=== PATIENT | female | born 1995 | race Two or more races ===

== ENCOUNTER 2024-04-30 00:07 | Inpatient (IN) | payer OTHER, MEDICAID, SELFPAY ==
[2024-04-30] VITALS (11 sets, daily range): BP systolic 102–144; BP diastolic 52–94; PULSE 95–133; RESP 14–26; TEMP 36.6–37.4; O2SAT 97–100; BMI 30.7; BMI 30.6
--- NOTE | 2024-04-30 00:30 | EDNOTE_ITS ---
ED Abdominal Pain RME/HPI General Chief Complaint: Abdominal Pain Stated complaint: ABD PAIN,N/V Time seen by provider: 04/30/24 00:24 Arrival date/time: 04/30/24 00:07 RME / HPI RME / HPI narrative: This section includes all my notes and documentations, including HPI, PE, and ED course. Quintin Mtz MD HPI: 28yo female with a history of DM BIB her dad presents to the ED for complaints of diffuse abdominal pain and N/V x several hours. Patient's dad states the patient started having diffuse abdominal pain tonight that has been progressively getting worse. The patient started having N/V and was unable to tolerate the pain, so she was brought in for evaluation. Dad also reports disorientation and confusion. Denies any fever, chills or any other associated symptoms. No other complaints reported. ROS: All negative except as documented in HPI. Physical Exam: General: Patient appears alert but hyperventilating. And not focused. Gyrating with no obvious purpose. Constant moaning, possibly from pain. Eyes: Conjunctivae and lids clear. EOMI. PERRL. ENT: No nasal congestion. Neck: Supple. Heart: Sinus tachycardia noted. Lungs: No respiratory distress. Good air movement. No rhonchi, wheezing, rales. Abdomen: Soft and nontender. Legs: No clubbing, cyanosis, edema. Skin: Warm and dry. Neurological: Cranial nerves II to XII grossly normal. No peripheral motor deficits. Initially, she was given IV fluid and Zofran and Toradol and morphine with no significant improvement. I reviewed all diagnostic test results. My interpretation of the EKG is sinus tachycardia with no acute ST?T changes. My interpretation of the chest x-ray is no acute findings, official radiology report is pending. Blood tests and urine tests remarkable for WBC 16.4, K 3.3, anion gap 18, GLU 303, LA 5.1, Phos 1.4, beta hydroxybutyrate 1.3. ABG showed pH 7.53, pCO2 19, pHCO3 16. At this point, diagnoses include DKA. Patient was also given regular insulin bolus and drip. With Ativan 1.5 mg IV, mental status improved. I discussed the case with our ICU team. About the presentation and exam and diagnostics and treatments here. And need of further care in the hospital. Will accept the patient. Quintin Mtz MD Related Data Previous Rx's ?Medication ?Instructions ?Recorded insulin glargine 100 unit/mL (3 15 unit (0.15 mL) subc ut QPM 30 06/06/22 mL) subcutaneous pen (Lantus days #4.5 mL Solostar U-100 Insulin) metoclopramide HCl 10 mg tablet 10 mg PO Q6H PRN nause a and 07/24/22 vomiting #20 tabs diphenhydramine HCl 25 mg capsule 25 mg PO Q8H PRN all ergic symptoms 08/09/23 (Benadryl) #30 caps Allergies Allergy/AdvReac Type Severity Reaction Status Date / Time No Known Allergies Allergy Verified 03/07/22 01:35 Review of Systems Review of Systems Systems Reviewed: All systems reviewed, normal except as documented Past Medical History Past Medical History NEUROLOGIC: Negative Neurological Disorders CARDIAC: Positive Hypertension (last ); Negative Cardiac Disorders or Congestive Heart Failure RESPIRATORY: Negative Chronic Obstructive Pulmonary Disease (COPD) GASTROINTESTINAL: Negative Gastrointestinal Disorders GENITOURINARY: Negative Genitourinary Disorders or Renal Disease REPRODUCTIVE: Positive Previous Pregnancies MUSCULOSKELETAL: Negative Musculoskeletal Disorders ENDOCRINE: Positive Endocrine Disorders and Diabetes Mellitus Type 1; Negative Diabetes Mellitus Type 2 HEMATOLOGIC: Positive Anemia OTHER HISTORY: Negative Autoimmune Disease Family History FAMILY HISTORY: Negative Family Psychiatric Problems, Family Respiratory Disorders, Family Cardiac Disorders, Family Gastrointestinal Problems, Family Cancer or Family Surgery Social History SMOKING STATUS: Current every day smoker ED Exam Narrative Physical exam: As noted in HPI. Course Quality Measures none Orders Category Date Time Status Bedside COVID-19 Antigen Test NOW Care 04/30/24 00:27 Active Bedside Influenza A&B Antigen Test NOW Care 04/30/24 00:27 Completed COVID-19 Screening Questionnaire NOW Care 04/30/24 02:26 Active Decision to Admit X1 Care 04/30/24 02:26 Active EKG (ED ONLY) *Do not use* NOW Care 04/30/24 01:08 Active Glucose [Bedside Blood Glucose] NOW Care 04/30/24 00:30 Active Saline [Insert IV] NOW Care 04/30/24 00:27 Active Straight [In and Out Catheter] X1 Care 04/30/24 00:27 Active EKG (ED Only) Stat Exams 04/30/24 01:08 Ordered ABG [Arterial Blood Gas] Stat Lab 04/30/24 01:34 Completed Acetaminophen Stat Lab 04/30/24 01:22 Completed Alcohol, Blood Medical Stat Lab 04/30/24 01:22 Completed Ammonia Stat Lab 04/30/24 01:22 Completed Amylase Stat Lab 04/30/24 01:22 Completed BNP [B-Type Natriuretic Peptide] Stat Lab 04/30/24 01:22 Completed Beta Hydroxybutyrate Stat Lab 04/30/24 01:22 Completed Blood Culture (Lab) Stat Lab 04/30/24 01:22 Received CBC Stat Lab 04/30/24 01:22 Completed CMP [Comprehensive Metabolic Panel] Stat Lab 04/30/24 01:22 Completed CRP [C-Reactive Protein] Stat Lab 04/30/24 01:22 Completed Drug Screen,Urine Stat Lab 04/30/24 01:09 Ordered ESR [Sed Rate (ESR)] Stat Lab 04/30/24 01:22 Completed HCG Qualitative,Urine Stat Lab 04/30/24 01:09 Ordered HCG,Qualitative Serum Stat Lab 04/30/24 01:22 Completed Hemoglobin A1C [Glycohemoglobin w (eAG)] Stat Lab 04/30/24 01:22 Completed Lactate (Lactic Acid) Stat Lab 04/30/24 01:22 Results Lipase Stat Lab 04/30/24 01:22 Completed Magnesium Stat Lab 04/30/24 01:22 Completed Phosphorous Stat Lab 04/30/24 01:22 Completed Procalcitonin Stat Lab 04/30/24 01:22 Completed Salicylate Stat Lab 04/30/24 01:22 Completed Thyroid Stimulating Hormone Stat Lab 04/30/24 01:22 Completed Troponin I Stat Lab 04/30/24 01:22 Completed UA, C/S IF [Urinalysis, C/S if Indicated] Stat Lab 04/30/24 01:09 Ordered Insulin Reg 100 Units/100 ml [Myxredlin] Med 04/30/24 02:24 Active 100 unit in 100 ml IV 0.1 unit/kg/hr Insulin Regular Med 04/30/24 02:56 Discontinued 20 unit IV X1 ONE Insulin Regular Med 04/30/24 01:07 Discontinued 5 unit IV X1 ONE Insulin Regular Med 04/30/24 03:07 Once 5 unit IV X1 ONE Ketorolac Inj [Toradol Inj] Med 04/30/24 00:27 Discontinued 30 mg IVP X1 ONE LORazepam [Ativan Inj] Med 04/30/24 01:59 Discontinued 1.5 mg IVP X1 ONE Morphine Inj Med 04/30/24 00:27 Discontinued 4 mg IVP X1 ONE Ondansetron Inj [Zofran Inj] Med 04/30/24 00:27 Discontinued 4 mg IV X1 ONE Ringers Lactated 1000 ml [Lactated Ringers] 1,000 ml Med 04/30/24 02:56 Discontinued IV 999 mls/hr Sodium Chloride 0.9% 1000 ml [Ns] 1,000 ml Med 04/30/24 00:27 Discontinued IV 999 mls/hr Sodium Chloride 0.9% 1000 ml [Ns] 1,000 ml Med 04/30/24 01:07 Discontinued IV 999 mls/hr Sodium Chloride 0.9% 1000 ml [Ns] 1,000 ml Med 04/30/24 01:07 Discontinued IV 999 mls/hr Sodium Chloride 0.9% 1000 ml [Ns] 1,000 ml Med 04/30/24 02:56 Active IV 999 mls/hr Sodium Chloride 0.9% 1000 ml [Ns] 1,000 ml Med 04/30/24 02:58 Active IV 999 mls/hr Sodium Chloride 0.9% 1000 ml [Ns] 1,000 ml Med 04/30/24 02:59 Active IV 999 mls/hr Vital Signs Vital signs: Vital Signs Temperature 99.3 F 04/30/24 00:41 Pulse Rate 133 H 04/30/24 00:41 Respiratory Rate 19 04/30/24 00:41 Blood Pressure 144/94 H 04/30/24 00:41 Pulse Oximetry (%) 97 04/30/24 00:41 Abdominal Pain MDM MDM Narrative [facility] Narrative:: Scribe Attestation: 04/30/24 Tana Montalvo am scribing for and in the presence of Dr. Mtz. Patient data External records reviewed:: [facility] previous records (Per chart review, patient was seen here on 07/30/23 for a rash.) Clinical information provided by:: patient Social determinants that could affect healthcare access:: substance use (history of marijuana use) Patient has the following chronic illnesses:: DM How is presenting disease/condition affected by chronic disease/condition?: uneffected by Evaluation data The following diagnostics were reviewed and interpreted by me:: lab results, radiology exam(s) and EKG tracing(s) (My interpretation of the EKG is: Sinus tachycardia (116 bpm) with nonspecific ST-T changes. Quintin Mtz MD) Lab and/or radiology exams considered but not ordered:: none Interpretation Summary: DKA Medications / Prescriptions Medications or Prescriptions considered but not ordered:: none Medication administrations:: Medication Administration History Insulin Human Regular (Myxredlin) 100 unit in 100 mls @ 8.618 mls/hr IV .[id number] PRN; Protocol PRN Reason: PER PROTOCOL Stop: 05/30/24 02:23 Sodium Chloride (Ns) 1,000 mls @ 999 mls/hr IV .Q1H1M ONE Stop: 04/30/24 03:56 Sodium Chloride (Ns) 1,000 mls @ 999 mls/hr IV .Q1H1M ONE Stop: 04/30/24 03:58 Sodium Chloride (Ns) 1,000 mls @ 999 mls/hr IV .Q1H1M ONE Stop: 04/30/24 03:59 Insulin Human Regular (Insulin Hum Regular 1 Unit/0.01 Ml (Per Unit)) 5 unit IV X1 ONE Stop: 04/30/24 03:08 Discontinued Medications Sodium Chloride (Ns) 1,000 mls @ 999 mls/hr IV .Q1H1M ONE Stop: 04/30/24 01:27 Last Infusion: 04/30/24 02:06 Dose: Infused Documented By: Admin: 04/30/24 01:05 Dose: 999 mls/hr Documented By: LB Sodium Chloride (Ns) 1,000 mls @ 999 mls/hr IV .Q1H1M ONE Stop: 04/30/24 02:07 Last Admin: 04/30/24 02:14 Dose: 999 mls/hr Documented By: LB Sodium Chloride (Ns) 1,000 mls @ 999 mls/hr IV .Q1H1M ONE Stop: 04/30/24 02:07 Last Admin: 04/30/24 02:45 Dose: 999 mls/hr Documented By: LB Lactated Ringer's (Lactated Ringers) 1,000 mls @ 999 mls/hr IV .Q1H1M ONE Stop: 04/30/24 03:56 Insulin Human Regular (Insulin Hum Regular 1 Unit/0.01 Ml (Per Unit)) 5 unit IV X1 ONE Stop: 04/30/24 01:08 Last Admin: 04/30/24 02:15 Dose: 5 unit Documented By: PATRIA Co-signed By: RICHARD Insulin Human Regular (Insulin Hum Regular 1 Unit/0.01 Ml (Per Unit)) 20 unit IV X1 ONE Stop: 04/30/24 02:57 Ketorolac Tromethamine (Ketorolac Inj 30 Mg/Ml Vial) 30 mg IVP X1 ONE Stop: 04/30/24 00:28 Last Admin: 04/30/24 02:40 Dose: 30 mg Documented By: LB Lorazepam (Lorazepam 2 Mg/Ml Vial) 1.5 mg IVP X1 ONE Stop: 04/30/24 02:00 Last Admin: 04/30/24 02:38 Dose: 1.5 mg Documented By: LB Morphine Sulfate (Morphine Sulf Inj 10 Mg/Ml Vial) 4 mg IVP X1 ONE Stop: 04/30/24 00:28 Last Admin: 04/30/24 01:05 Dose: 4 mg Documented By: PATRIA Ondansetron HCl (Ondansetron Inj 2 Mg/Ml Inj 2 Ml) 4 mg IV X1 ONE; Protocol Stop: 04/30/24 00:28 Last Admin: 04/30/24 01:04 Dose: 4 mg Documented By: PATRIA NS 1L IVF x3, Toradol, Morphine, Zofran, Insulin, Ativan Consultations Consultation(s) initiated? (list below): No Diagnosis Differential diagnosis abdominal pain: other (DKA, dehydration, electrolyte abnormalities, sepsis) Most likely diagnosis given after review of the tests above:: DKA Admission Indicated Admission indicated?: indicated Explain why admission is indicated or not indicated:: DKA Admission Request Was there a request for admission?: Yes Admission Attestation Admission request attestation: Discussed case with ICU service regarding admission. Discussed patients ED course, exam findings, labs, and radiology results. The ICU agrees to accept the patient for admission. Disposition Plan Disposition Plan: Admit Discharge Plan Plan Patient Disposition: Admit Acute Care w/in Hospital Prescriptions/Referrals Prescriptions/Med Rec: No Action diphenhydramine HCl [Benadryl] 25 mg capsule 25 mg PO Q8H PRN (Reason: allergic symptoms) Qty: 30 0RF insulin glargine [Lantus Solostar U-100 Insulin] 100 unit/mL (3 mL) insulin pen 15 unit subcut QPM 30 Days Qty: 4.5 1RF metoclopramide HCl 10 mg tablet 10 mg PO Q6H PRN (Reason: nausea and vomiting) Qty: 20 0RF Problem List Clinical Impression: DKA (diabetic ketoacidosis) Patient/Caregiver Discharge Instructions Print Language: [place] Stand Alone Forms: [employer] Info., Patient Portal Info Letter
--- NOTE | 2024-04-30 00:52 | PC.NURSE ---
Initial contact with pt. Awake, crying c/o abd pain.
[2024-04-30] MEDS: ONDANSETRON INJ 2 MG/ML INJ 2 ML 4 MG IV ×2 (01:04→08:39)
[2024-04-30] MEDS: SODIUM CHLORIDE 0.9% 1000 ML 1,000 ML 999 ML IV ×12 (01:05→08:33)
[2024-04-30] MEDS: MORPHINE SULF INJ 10 MG/ML VIAL 4 MG IVP (01:05)
--- NOTE | 2024-04-30 01:08 | EKG_ITS ---
[facility] Test Date: 2024-04-30 Pat Name: ROBERT BUTLER Department: Room: - Gender: Female [employer]: : 1995 Requested By: Quintin Lopez Order Number: [id number] Reading MD: Quintin Lopez Measurements Intervals [place] Rate: 109 P: 47 [place]: 152 QRS: 58 QRSD: 98 T: 22 QT: 370 QTc: 500 Interpretive Statements SINUS TACHYCARDIA NONSPECIFIC T-WAVE ABNORMALITY ABNORMAL RHYTHM ECG Compared to ECG 09/12/2021 19:50:20 T-wave abnormality now present /store/S0/[id number]/ecg/[id number].pdf
--- NOTE | 2024-04-30 01:22 | PC.NURSE ---
To ct-scan via w/c.
[2024-04-30 01:39] LABS: Basophils % (Auto) 0 % (0-2.5); Eosinophils % (Auto) 0 % (0-10); Hematocrit 36.1 % (36.0-46.0); Hemoglobin 12.3 g/dL (12.0-16.0); Immature Granulocytes % (Auto) 0 % (0-0); Immature Granulocytes Auto 0.07 Thou/mm3 (0.00-0.00); Lymphocytes # (Auto) 1.5 Thou/mm3 (1.0-4.8); Lymphocytes % (Auto) 9 % (10-50); Mean Corpuscular HGB Conc 34.1 g/dl (31.0-37.0); Mean Corpuscular Hemoglobin 27.6 pg (25.0-35.0); Mean Corpuscular Volume 81 fL (80-100); Monocytes # (Auto) 0.8 Thou/mm3 (0.0-0.8); Monocytes % (Auto) 5 % (0-12); Neutrophils % (Auto) 86 % (37-80); Nucleated Red Blood Cell % 0 /100 WBC (0); Platelet Count 290 Thou/mm3 (140-440); RDW Standard Deviation 42.6 fL (36.4-46.3); Red Blood Count 4.46 Miln/mm3 (4.00-5.20); White Blood Count 16.4 Thou/mm3 (3.6-11.0)
[2024-04-30 01:39] LABS: Base Excess -4 (-3-3); HCO3 16 mEq/L (20-26); Inspired Oxygen, FIO2 21 %; O2 Saturation 100 % (91-98); PCO2 19 mmHg (32.0-48.0); PO2 123 mmHg (83-108); pH, Arterial 7.53 (7.35-7.45)
[2024-04-30 01:43] LABS: Lactate (Lactic Acid) 5.1 mMol/L (0.4-2.0)
[2024-04-30 01:43] LABS: Allen Test Performed/OK; Puncture Site Right Radial
[2024-04-30 01:53] LABS: HCG,Qualitative Serum Negative
[2024-04-30 02:00] LABS: B-Type Natriuretic Peptide < 20 pg/mL (0-100)
[2024-04-30 02:01] LABS: Ammonia < 10 uMol/L (11-32)
[2024-04-30 02:02] LABS: Glucose Estimated Average 229 mg/dL (80-131); Hemoglobin A1C 9.6 % Hgb (4.8-6.0)
[2024-04-30] MEDS: INSULIN HUM REGULAR 1 UNIT/0.01 ML (PER UNIT) 5 UNIT IV ×4 (02:15→13:33)
[2024-04-30 02:17] LABS: Acetaminophen < 2.0 mcg/mL (10.0-20.0); Alanine Aminotransferase 59 U/L (10-49); Albumin, Serum 4.7 gm/dL (3.5-5.0); Albumin/Globulin Ratio 1.5 (1.2-2.2); Alcohol, Blood Medical < 3.0 mg/dL (0-10.0); Alkaline Phosphatase 78 U/L (46-116); Amylase 92 U/L (30-118); Anion Gap 18 (7-16); Aspartate Amino Transferase 48 U/L (0-34); BUN/Creatinine Ratio 16 Ratio (12-20); Bilirubin,Total 0.8 mg/dL (0.3-1.2); Blood Urea Nitrogen 16 mg/dL (9-23); C-Reactive Protein 1.2 mg/dL (0.0-0.9); Calcium 9.7 mg/dL (8.3-10.6); Calcium (Corrected) 9.7 mg/dL (8.5-10.1); Carbon Dioxide 15.9 mMol/L (20.0-31.0); Chloride 102 mMol/L (98-107); Estimated Creatinine Clearance 94.3 mL/min (>60); Globulin 3.1 gm/dL (2.3-3.5); Glucose 303 mg/dL (74-106); Lipase 33 U/L (12-53); Magnesium 1.8 mg/dL (1.6-2.6); Osmolality,Calculated 284 (275-295); Phosphorous 1.4 mg/dL (2.4-5.1); Potassium 3.3 mMol/L (3.4-5.1); Procalcitonin 0.31 ng/ml (0.0-0.49); Salicylate < 3.0 mg/dL; Sodium 136 mMol/L (136-145); Thyroid Stimulating Hormone 0.57 uIU/mL (0.55-4.78); Total Protein 7.8 gm/dL (5.7-8.2); Troponin I < 0.002 ng/mL (0.0-0.045); eGFR > 60 See Note
[2024-04-30 02:24] LABS: Sed Rate (ESR) 27 mm/hr (0-20)
[2024-04-30 02:25] LABS: Beta Hydroxybutyrate 1.3 mmol/L (<0.6)
[2024-04-30] MEDS: LORazepam 2 MG/ML VIAL 1.5 MG IVP (02:38)
[2024-04-30] MEDS: KETOROLAC INJ 30 MG/ML VIAL IVP (02:40)
[2024-04-30 04:36] LABS: Reflex Lactate? Y
[2024-04-30 04:52] LABS: Lactic Acid, 3 HR 2.2 mMol/L (0.4-2.0)
--- NOTE | 2024-04-30 05:11 | PC.NURSE ---
Awaitingf for pharmacy to verified meds.
[2024-04-30 05:33] LABS: Collection Type, Urine Clean Catch
[2024-04-30 05:56] LABS: Anion Gap 12 (7-16); BUN/Creatinine Ratio 14 Ratio (12-20); Blood Urea Nitrogen 10 mg/dL (9-23); Calcium 7.2 mg/dL (8.3-10.6); Calcium (Corrected) 7.2 mg/dL (8.5-10.1); Chloride 111 mMol/L (98-107); Creatinine (Component) 0.7 mg/dL (0.6-1.3); Estimated Creatinine Clearance 134.7 mL/min (>60); Glucose 145 mg/dL (74-106); Osmolality,Calculated 283 (275-295); Phosphorous 1.9 mg/dL (2.4-5.1); Potassium 3.6 mMol/L (3.4-5.1); Sodium 141 mMol/L (136-145); eGFR > 60 See Note
[2024-04-30 05:57] LABS: Amphetamine/Methamp Scrn,U Negative (Negative); Barbiturate Screen,Urine Negative (Negative); Benzodiazepines Screen,Urine Negative (Negative); Benzoylecgonine Screen, Ur Negative (Negative); Fentanyl Screen,Urine Negative (Negative); Opiate Screen,Urine Positive (Negative); THC Screen,Urine Positive (Negative)
--- NOTE | 2024-04-30 06:13 | ESHP_ITS ---
<Statement entered by Alessio Lee MD - 05/02/24 05:06> I reviewed above note and agree with findings and plans. I have also personally examined the patient with medicine team and went over assessment and plan with medical team including pr intern and resident physician. Documentation for date of: 04/30/24 HPI History of Present Illness Chief complaint: Abdomiinal Pain. Nausea and vomiting History of present illness: Ms. Whitt is a 26-year-old female with a history of type 1 diabetes mellitus (on basal/bolus), who presented to the emergency department with a chief complaint of abdominal pain associated with nausea and vomiting. Patient states she was in her usual state of health but missed her evening dose of basal insulin. Approximately 2-3 hours prior to presentation she began to experience abdominal pain, nausea and vomiting. Due to progressive worsening symptoms. she was brought to the ED by her father. ED Course: In the ED the patient vitals were significant for a elevated BP of 155/93, tachycardia of 133. Initial workup revealed an elevated WBC of 16.4, hypokalemia of 3.3, Bicarbonate of 15.9 and glucose of 303, A1c of 9.6, Anion gap of 18, BHB of 1.3 and A1c of 9.6. An ABG was performed which showed ABG 7.53/pCO2 19/HCO3 16. Liver enzymes showed a mild transaminitis of AST/ALT of 48 and 59 respectively. Patient was administered 5 units of regular insulin, 3L NS, Morphine 4 mg and Zofran and admission was requested for treatment of DKA. Patient was administered an addition 3L of NS and 5 units of regular insulin. Past Medical History: Type 1 diabetes mellitus Past Surgical History: Cesarian section, cholecystectomy Home Medications: Insulin Lispro 12 units tid, Lantus 16 units HS Allergies: NKDA Family History: Non-contributory Social History: EtOH usage: Denies Smoking History: Denies Illicit drug usage: Denies Review of Systems Review of Systems Systems Reviewed: All systems reviewed, normal except as documented Exam Vital Signs Temp Pulse Resp BP Pulse Ox O2 Del Method 98.4 F 106 H 18 130/81 98 Room Air 04/30/24 05:10 04/30/24 05:10 04/30/24 05:10 04/30/24 05:10 04/30/24 05:10 04/30/24 05:10 Narrative Exam General: Not in any visible or apparent acute distress, sick appearing, alert, pleasant and interactive HEENT: NC/AT, PERRL, EOMI, good conjugate gaze, moist mucous membranes, oropharynx clear, trachea appears midline, no gross LAD Neck: Supple, No masses, No JVD, normal range of motion CVS: S1S2 Regular rate and rhythm, No murmurs, rubs or gallops Lungs: Normal respiratory effort, no wheezing rhonchi or rales, CTAB Abd: Soft, diffuse tenderness to palpation Ext: No edema, warm well perfused, normal tone and ROM, strength and sensation intact, cap refill less than 2, +2 dp equal bilaterally Skin: Intact, no rashes, no lesions, no erythema Neuro: AOx3, cranial nerves II through XII intact, reflex symmetric, and sensation normal Psych: Appropriate mood and affect Results: Labs 04/30/24 07:35 04/30/24 07:35 Labs: Short CBC 04/30/24 Range/Units 01:22 WBC 16.4 H (3.6-11.0) Thou/mm3 Hgb 12.3 (12.0-16.0) g/dL Hct 36.1 (36.0-46.0) % Plt Count 290 (140-440) Thou/mm3 BMP 04/30/24 04/30/24 01:22 04:30 Sodium 136 141 Potassium 3.3 L 3.6 Chloride 102 111 H Carbon Dioxide 15.9 L 18.0 L BUN 16 10 Creatinine 1.0 0.7 Glucose 303 H 145 H D Calcium 9.7 7.2 L D Cardiac Enzymes 04/30/24 Range/Units 01:22 Troponin I < 0.002 (0.0-0.045) ng/mL Liver Function 04/30/24 04/30/24 Range/Units 01:22 04:30 Total Bilirubin 0.8 (0.3-1.2) mg/dL AST 48 H (0-34) U/L ALT 59 H (10-49) U/L Alkaline Phosphatase 78 (46-116) U/L Albumin 4.7 4.0 D (3.5-5.0) gm/dL ABG Interpretation ABG results: 04/30/24 01:34 ABG pH 7.53 H ABG pCO2 19 L* ABG pO2 123 H ABG HCO3 16 L ABG O2 Saturation 100 H ABG Base Excess -4 L Quality Measures Quality Measures none Medications Home Medications and Allergies Allergies Allergy/AdvReac Type Severity Reaction Status Date / Time No Known Allergies Allergy Verified 03/07/22 01:35 Visit Medications Acetaminophen (Acetaminophen 325 Mg Tablet) 650 mg PO Q6H PRN PRN Reason: Fever >101.5 Stop: 05/30/24 06:04 Acetaminophen (Acetaminophen 325 Mg Tablet) 650 mg PO Q6H PRN PRN Reason: PAIN SCALE 1-3 (mild Stop: 05/30/24 06:04 Enoxaparin Sodium (Enoxaparin Sod Inj 40 Mg/0.4 Ml Syringe) 40 mg SC QDAY PROSPER Stop: 05/14/24 08:59 Insulin Human Regular (Myxredlin) 100 unit in 100 mls @ 8.618 mls/hr IV .[id number] PRN; Protocol PRN Reason: PER PROTOCOL Stop: 05/30/24 02:23 Potassium Chloride (Kcl Ivpb) 10 meq in 100 mls @ 100 mls/hr IV Q1H PROSPER Stop: 04/30/24 08:48 Magnesium Sulfate (Magnesium Sulfate Ivpb) 2 gm in 50 mls @ 25 mls/hr IV X1 ONE Stop: 04/30/24 06:49 Sodium Phosphate 22.5 mmol/ (Sodium Chloride) 507.5 mls @ 82.778 mls/hr IV X1 ONE Stop: 04/30/24 10:58 Sodium Chloride (Ns) 1,000 mls @ 999 mls/hr IV .Q1H1M PROSPER Stop: 05/30/24 06:14 Sodium Chloride (Ns) 1,000 mls @ 999 mls/hr IV .Q1H1M ONE Stop: 04/30/24 07:09 Insulin Human Regular (Insulin Hum Regular 1 Unit/0.01 Ml (Per Unit)) 5 unit IV X1 ONE Stop: 04/30/24 06:11 Ondansetron HCl (Ondansetron Inj 2 Mg/Ml Inj 2 Ml) 4 mg IV Q6H PRN; Protocol PRN Reason: NAUSEA OR VOMITING Stop: 05/30/24 06:04 Pantoprazole Sodium (Pantoprazole Inj 40 Mg Vial) 40 mg IVP QDAY PROSPER Stop: 05/30/24 08:59 Discontinued Medications Sodium Chloride (Ns) 1,000 mls @ 999 mls/hr IV .Q1H1M ONE Stop: 04/30/24 01:27 Last Infusion: 04/30/24 02:06 Dose: Infused Sodium Chloride (Ns) 1,000 mls @ 999 mls/hr IV .Q1H1M ONE Stop: 04/30/24 02:07 Last Infusion: 04/30/24 03:15 Dose: Infused Sodium Chloride (Ns) 1,000 mls @ 999 mls/hr IV .Q1H1M ONE Stop: 04/30/24 02:07 Last Infusion: 04/30/24 03:46 Dose: Infused Sodium Chloride (Ns) 1,000 mls @ 999 mls/hr IV .Q1H1M ONE Stop: 04/30/24 03:56 Last Infusion: 04/30/24 04:54 Dose: Infused Lactated Ringer's (Lactated Ringers) 1,000 mls @ 999 mls/hr IV .Q1H1M ONE Stop: 04/30/24 03:56 Sodium Chloride (Ns) 1,000 mls @ 999 mls/hr IV .Q1H1M ONE Stop: 04/30/24 03:58 Last Admin: 04/30/24 04:57 Dose: 999 mls/hr Sodium Chloride (Ns) 1,000 mls @ 999 mls/hr IV .Q1H1M ONE Stop: 04/30/24 03:59 Last Admin: 04/30/24 03:55 Dose: 999 mls/hr Insulin Human Regular (Insulin Hum Regular 1 Unit/0.01 Ml (Per Unit)) 5 unit IV X1 ONE Stop: 04/30/24 01:08 Last Admin: 04/30/24 02:15 Dose: 5 unit Insulin Human Regular (Insulin Hum Regular 1 Unit/0.01 Ml (Per Unit)) 20 unit IV X1 ONE Stop: 04/30/24 02:57 Insulin Human Regular (Insulin Hum Regular 1 Unit/0.01 Ml (Per Unit)) 5 unit IV X1 ONE Stop: 04/30/24 03:08 Last Admin: 04/30/24 03:39 Dose: 5 unit Ketorolac Tromethamine (Ketorolac Inj 30 Mg/Ml Vial) 30 mg IVP X1 ONE Stop: 04/30/24 00:28 Last Admin: 04/30/24 02:40 Dose: 30 mg Lorazepam (Lorazepam 2 Mg/Ml Vial) 1.5 mg IVP X1 ONE Stop: 04/30/24 02:00 Last Admin: 04/30/24 02:38 Dose: 1.5 mg Morphine Sulfate (Morphine Sulf Inj 10 Mg/Ml Vial) 4 mg IVP X1 ONE Stop: 04/30/24 00:28 Last Admin: 04/30/24 01:05 Dose: 4 mg Ondansetron HCl (Ondansetron Inj 2 Mg/Ml Inj 2 Ml) 4 mg IV X1 ONE; Protocol Stop: 04/30/24 00:28 Last Admin: 04/30/24 01:04 Dose: 4 mg Potassium Chloride (Potassium Chloride 20 Meq Tabcr) 40 meq PO X1 ONE Stop: 04/30/24 04:49 Assessment & Plan Plan Plan Assessment: Ms. Brandy Whitt is a 28 lady with a past medical history of diabetes mellitus who presented to the ED due to symptoms of nausea, vomiting and abdominal pain. The patient was found to be in DKA and was admitted to the ICU for treatment and management. Plan:? Neurological Stable, AAOx3 Cardiology #Tachycardia Mostly likely secondary to acidotic state. Will resolve once DKA resolves Pulmonary Stable, saturating adequately in ambient air Gastrointestinal #Nausea, vomiting, and abdominal pain In the setting of DKA -GI PPX: 40 mg Pantoprazole BID -Zofran PRN for nausea/vomiting -Low carb consistent diet -Restart home Insulin regimen 15 units HS #Tranaminitis Mild elevation of AST and ALT -COntinue to trend and monitor Renal/Genitourinary #Anion Gap Metabolic acidosis: Anion Gap 18, Beta Hydroxybutyrate 1.3, HCO3 15.9, improved to Agap of 12 and Bicarb of 18 s/p fluid and insulin #Lactic acidisis: 5.1 improved to 2.2 s/p IVF #Hypophosphatemia: in setting of DKA #Hypokalemia: Potassium: 3.3 -Repeat BMP: Pending -Repleted electrolytes Endocrine #Diabetic Ketoacidosis: resolved Anion gap closed however still borderline, Bicarb of 18 -Renal panel: Pending -ISS -Restart home dose of long acting insulin -AC accucheks Hematology #Leuckocytosis- WBC: 16.4, most likely reactive secondary to DKA state -F/U AM CBC Infectious Disease No signs of active infection, afebrile Skin - no acute issues, no evidence of skin breakdown Health Maintenance Fluids Electrolytes Nutrition: low carb consistent diet Code Status: Full Code DVT Prophylaxis: Lovenox GI Prophylaxis: Pantoprazole Disposition:?Telemetry Patient's case was discussed with supervising attending physician Dr. Alessio Robert M.D. Internal Medicine PGY-3
[2024-04-30 06:33] LABS: Bacteria,Urine Rare; Bilirubin,Urine Negative (Negative); Blood,Urine 3+ (Negative); Clarity,Urine Clear (Clear/Hazy); Color,Urine Colorless (Lt Yel-Yel); Glucose, Urine 4+ (Negative); Ketones,Urine 3+ (Negative); Leukocyte Esterase,Urine Positive (Negative); Nitrite,Urine Negative (Negative); Protein,Urine Trace (Neg - Trace); RBC,Urine 2 /hpf (0-3); Specific Gravity,Urine 1.023 (1.001-1.035); Squamous Epithelial Cell,Urine 2 /hpf (0-5); Urobilinogen,Urine Negative mg/dL (0.0-1.0); WBC,Urine 13 /hpf (0-5)
[2024-04-30 06:34] LABS: Culture Indicated,Urine Yes
[2024-04-30 06:34] LABS: Cardiac Risk Estimate 3.3 RATIO (3.7-5.6); Cholesterol 136 mg/dL (132-200); HDL Cholesterol 41 mg/dL (40-60); LDL Cholesterol,Calculated 79 mg/dL (0-130); Magnesium 1.2 mg/dL (1.6-2.6); Triglycerides 82 mg/dL (30-150)
[2024-04-30 06:38] LABS: HCG Qualitative,Urine Negative
[2024-04-30] MEDS: Magnesium Sulfate 2 GM Ivpb 2 GM/50 ML BAG IV (06:39)
[2024-04-30] MEDS: POTASSIUM CHLORIDE 20 mEq TABCR 40 MEQ PO (06:41)
[2024-04-30] MEDS: SOD PHOS ADDITIVE 22.5 MMOL in SODIUM CHLORIDE 0.9% 500 ML 500 ML 82.778 MMOL IV (07:43)
[2024-04-30 07:44] LABS: Basophils % (Auto) 0 % (0-2.5); Eosinophils % (Auto) 0 % (0-10); Hematocrit 34.3 % (36.0-46.0); Hemoglobin 11.6 g/dL (12.0-16.0); Immature Granulocytes % (Auto) 0 % (0-0); Immature Granulocytes Auto 0.05 Thou/mm3 (0.00-0.00); Lymphocytes # (Auto) 0.8 Thou/mm3 (1.0-4.8); Lymphocytes % (Auto) 6 % (10-50); Mean Corpuscular HGB Conc 33.8 g/dl (31.0-37.0); Mean Corpuscular Hemoglobin 27.7 pg (25.0-35.0); Mean Corpuscular Volume 82 fL (80-100); Monocytes # (Auto) 0.6 Thou/mm3 (0.0-0.8); Monocytes % (Auto) 5 % (0-12); Neutrophils # (Auto) 11.9 Thou/mm3 (1.8-7.7); Neutrophils % (Auto) 89 % (37-80); Nucleated Red Blood Cell % 0 /100 WBC (0); Platelet Count 221 Thou/mm3 (140-440); RDW Standard Deviation 42.9 fL (36.4-46.3); Red Blood Count 4.19 Miln/mm3 (4.00-5.20); White Blood Count 13.4 Thou/mm3 (3.6-11.0)
[2024-04-30 08:00] LABS: Albumin, Serum 4.4 gm/dL (3.5-5.0); Anion Gap 11 (7-16); BUN/Creatinine Ratio 10 Ratio (12-20); Blood Urea Nitrogen 7 mg/dL (9-23); Calcium 7.3 mg/dL (8.3-10.6); Calcium (Corrected) 7.3 mg/dL (8.5-10.1); Carbon Dioxide 18.8 mMol/L (20.0-31.0); Chloride 107 mMol/L (98-107); Creatinine (Component) 0.7 mg/dL (0.6-1.3); Estimated Creatinine Clearance 134.7 mL/min (>60); Glucose 164 mg/dL (74-106); Osmolality,Calculated 275 (275-295); Potassium 3.4 mMol/L (3.4-5.1); Sodium 137 mMol/L (136-145); eGFR > 60 See Note
[2024-04-30] MEDS: PANTOPRAZOLE INJ 40 MG VIAL IVP (08:12)
[2024-04-30] MEDS: INSULIN LISPRO (AdmeLOG) 1 UNIT/0.01 ML UNIT SC ×2 (08:12→19:19)
[2024-04-30] MEDS: ENOXAPARIN SOD INJ 40 MG/0.4 ML SYRINGE SC (08:13)
[2024-04-30] MEDS: HYDROcodone/APAP 5/325 TABLET 1 TAB PO ×2 (08:39→19:19)
[2024-04-30] MEDS: Magnesium Sulfate 4 GM Ivpb 4 GM/50 ML BAG IV (09:12)
[2024-04-30] MEDS: POTASSIUM CHLORIDE 20 mEq TABCR PO (09:12)
--- NOTE | 2024-04-30 09:24 | PC.NURSE ---
Spoke with pharmacy regarding sodium phosphate infusion and potassium phosphate infusion; per pharmacy since the sodium phosphate is running first to continue the six hour infusion and then run the potassium phosphate afterwards.
--- NOTE | 2024-04-30 09:47 | PC.NURSE ---
Telephone MD Bruno Alvarez to ask if the NS IV fluids order could be discontinued since the patient had already received IV fluids; new orders received to discontinue IV fluids.
[2024-04-30 12:26] LABS: Albumin, Serum 4.4 gm/dL (3.5-5.0); Anion Gap 13 (7-16); BUN/Creatinine Ratio 10 Ratio (12-20); Blood Urea Nitrogen 7 mg/dL (9-23); Calcium 7.2 mg/dL (8.3-10.6); Calcium (Corrected) 7.2 mg/dL (8.5-10.1); Chloride 105 mMol/L (98-107); Creatinine (Component) 0.7 mg/dL (0.6-1.3); Estimated Creatinine Clearance 134.7 mL/min (>60); Glucose 210 mg/dL (74-106); Osmolality,Calculated 275 (275-295); Phosphorous 3.2 mg/dL (2.4-5.1); Potassium 4.2 mMol/L (3.4-5.1); Sodium 136 mMol/L (136-145); eGFR > 60 See Note
--- NOTE | 2024-04-30 12:46 | PD.RESPRO ---
Documentation for date of: 04/30/24 Subjective Subjective Interval history: Brandy Whitt is a 26-year-old female with past medical history of T1DM (on CGM and basal/bolus insulin) who presented to the ED with abdominal pain, nausea, and vomiting. States that she has not been able to use her CGM due to technical difficulties for the last few days and missed her evening dose of basal insulin. Approximately 3 hours prior to presentation she presented with symptoms as noted above and was brought to the ED by her father. In the ED, labs showed glucose 303, K 3.3, HCO3 16, AG 18, lactate 5.1, beta hydroxybutyrate 1.3, ABG showed pH 7.5, pCO2 19, pO2 123. She was given regular insulin 5 units IV x 2 and repeat labs showed glucose 145, AG of 12, HCO3 18. Given that gap had closed with IV insulin, decision was made to not start insulin drip. In ED also given total of 7 L IVF, 4 mg morphine, and Zofran. 04/30: Seen and examined at bedside in ED. She continues to endorse abdominal pain and nausea but no reported episodes of emesis. Tachycardic to 110 bpm, otherwise vital signs stable. Will continue on 15 units glargine and sliding scale insulin for now and start oral pain medications. Repeat renal panel showed AG of 13 and glucose of 210 and subsequently given 5 units IV insulin and 500 cc IVF bolus. Follow-up renal panel showed AG of 12 and glucose of 156. Will follow-up with renal panel in evening and manage accordingly. Exam Vital Signs Temp Pulse Resp BP Pulse Ox O2 Del Method 98.1 F 110 H 18 114/79 98 Room Air 04/30/24 09:29 04/30/24 09:29 04/30/24 09:29 04/30/24 09:29 04/30/24 09:29 04/30/24 09:29 Narrative Exam General: AOx3, in mild distress due to abdominal pain, able to speak full sentences HEENT: NC/AT, mucous membranes moist, bilateral sclera anicteric Cardiovascular: regular rhythm, tachycardic, S1/S2 present, no murmurs appreciated Pulmonary: clear to auscultation bilaterally, no rales/rhonchi/wheezes Abdominal: Diffuse tenderness, soft, non-distended, no rebound/guarding, normal bowel sounds present Musculoskeletal: normal ROM, no peripheral edema Skin: warm and dry, intact, no rashes Neuro: CN II-XII intact, no focal deficits Objective Labs 05/01/24 04:41 05/01/24 04:41 Labs: Laboratory Results - last 24 hr 04/30/24 04/30/24 04/30/24 01:22 01:34 04:30 WBC 16.4 H RBC 4.46 Hgb 12.3 Hct 36.1 MCV 81 MCH 27.6 MCHC 34.1 RDW Std Deviation 42.6 Plt Count 290 Neut % (Auto) 86 H Lymph % (Auto) 9 L [place] % (Auto) 5 Eos % (Auto) 0 Baso % (Auto) 0 Neut # (Auto) 14.0 H Lymph # (Auto) 1.5 [place] # (Auto) 0.8 Eos # (Auto) 0.0 Baso # (Auto) 0.0 Immature Gran # (Auto) 0.07 H Absolute Nucleated RBC 0.00 Immature Gran % 0 Nucleated RBC % 0 ESR 27 H Puncture Site Right Radial ABG pH 7.53 H ABG pCO2 19 L* ABG pO2 123 H ABG HCO3 16 L ABG O2 Saturation 100 H ABG Base Excess -4 L FiO2 21 Sodium 136 141 Potassium 3.3 L 3.6 Chloride 102 111 H Carbon Dioxide 15.9 L 18.0 L Anion Gap 18 H 12 BUN 16 10 Creatinine 1.0 0.7 Estim Creat Clear Calc 94.3 134.7 eGFR > 60 > 60 BUN/Creatinine Ratio 16 14 Glucose [address] Glu mg/dL 229 H Hemoglobin A1c 9.6 H Calculated Osmolality 284 283 Lactic Acid 5.1 H* 2.2 H Calcium 9.7 7.2 L D Corrected Calcium 9.7 7.2 L D Phosphorus 1.4 L 1.9 L Magnesium 1.8 1.2 L Total Bilirubin 0.8 AST 48 H ALT 59 H Alkaline Phosphatase 78 Ammonia < 10 L Troponin I < 0.002 C-Reactive Prot, Quant 1.2 H B-Natriuretic Peptide < 20 Total Protein 7.8 Albumin 4.7 4.0 D Globulin 3.1 Albumin/Globulin Ratio 1.5 Triglycerides 82 Cholesterol 136 LDL Cholesterol, Calc 79 HDL Cholesterol 41 Cholesterol/HDL Ratio 3.3 L Amylase 92 Lipase 33 Beta-Hydroxybutyrate/Acetoacetate 1.3 H Procalcitonin 0.31 TSH 0.57 HCG, Qual Negative Ur Collection Type Urine Color Urine Clarity Urine pH Ur Specific [place] Urine Protein Urine Glucose (UA) Urine Ketones Urine Blood Urine Nitrite Urine Bilirubin Urine Urobilinogen (Auto) Ur Leukocyte Esterase Urine RBC Urine WBC Ur Squamous Epith Cells Urine Bacteria Ur Culture Indicated? Urine HCG, Qual Salicylates < 3.0 Urine Opiates Screen Urine Fentanyl Screen Acetaminophen < 2.0 L Ur Barbiturates Screen U Amphetamin/Meth Scrn U Benzodiazepines Scrn U Cocaine Metab Screen U Marijuana (THC) Screen Ethyl Alcohol < 3.0 04/30/24 04/30/24 05:30 07:35 WBC 13.4 H RBC 4.19 Hgb 11.6 L Hct 34.3 L MCV 82 MCH 27.7 MCHC 33.8 RDW Std Deviation 42.9 Plt Count 221 D Neut % (Auto) 89 H Lymph % (Auto) 6 L [place] % (Auto) 5 Eos % (Auto) 0 Baso % (Auto) 0 Neut # (Auto) 11.9 H Lymph # (Auto) 0.8 L [place] # (Auto) 0.6 Eos # (Auto) 0.0 Baso # (Auto) 0.0 Immature Gran # (Auto) 0.05 H Absolute Nucleated RBC 0.00 Immature Gran % 0 Nucleated RBC % 0 ESR Puncture Site ABG pH ABG pCO2 ABG pO2 ABG HCO3 ABG O2 Saturation ABG Base Excess FiO2 Sodium 137 Potassium 3.4 Chloride 107 Carbon Dioxide 18.8 L Anion Gap 11 BUN 7 L Creatinine 0.7 Estim Creat Clear Calc 134.7 eGFR > 60 BUN/Creatinine Ratio 10 L Glucose [address] Glu mg/dL Hemoglobin A1c Calculated Osmolality 275 Lactic Acid Calcium 7.3 L Corrected Calcium 7.3 L Phosphorus 2.0 L Magnesium Total Bilirubin AST ALT Alkaline Phosphatase Ammonia Troponin I C-Reactive Prot, Quant B-Natriuretic Peptide Total Protein Albumin 4.4 Globulin Albumin/Globulin Ratio Triglycerides Cholesterol LDL Cholesterol, Calc HDL Cholesterol Cholesterol/HDL Ratio Amylase Lipase Beta-Hydroxybutyrate/Acetoacetate Procalcitonin TSH HCG, Qual Ur Collection Type Clean Catch Urine Color Colorless A Urine Clarity Clear Urine pH 6.0 Ur Specific [place] 1.023 Urine Protein Trace Urine Glucose (UA) 4+ A Urine Ketones 3+ A Urine Blood 3+ A Urine Nitrite Negative Urine Bilirubin Negative Urine Urobilinogen (Auto) Negative Ur Leukocyte Esterase Positive Urine RBC 2 Urine WBC 13 H Ur Squamous Epith Cells 2 Urine Bacteria Rare Ur Culture Indicated? Yes Urine HCG, Qual Negative Salicylates Urine Opiates Screen Positive A Urine Fentanyl Screen Negative Acetaminophen Ur Barbiturates Screen Negative U Amphetamin/Meth Scrn Negative U Benzodiazepines Scrn Negative U Cocaine Metab Screen Negative U Marijuana (THC) Screen Positive A Ethyl Alcohol ABG Interpretation ABG results: 04/30/24 01:34 ABG pH 7.53 H ABG pCO2 19 L* ABG pO2 123 H ABG HCO3 16 L ABG O2 Saturation 100 H ABG Base Excess -4 L Quality Measures Quality Measures none Assessment & Plan Assessment Current Active Medications: Generic Name Dose Route Start Last Admin Trade Name Freq PRN Reason Stop Dose Admin Acetaminophen 650 mg 04/30/24 06:05 Acetaminophen 325 Mg Tablet PO 05/30/24 06:04 Q6H PRN Fever >101.5 Acetaminophen 650 mg 04/30/24 06:05 Acetaminophen 325 Mg Tablet PO 05/30/24 06:04 Q6H PRN PAIN SCALE 1-3 (mild Hydrocodone Bitart/Acetaminophen 1 tab 04/30/24 08:23 04/30/24 08:39 Hydrocodone/Apap 5/325 Tablet PO 05/05/24 08:22 1 tab Q6HR PRN Administration PAIN SCALE 4-10(Mod-Sev Dextrose 25 ml 04/30/24 07:08 Dextrose 50%-Water Inj 50 Ml Syringe IV 05/30/24 07:07 Q15MIN PRN BG 50-70 responsive npo pt Dextrose 50 ml 04/30/24 07:08 Dextrose 50%-Water Inj 50 Ml Syringe IV 05/30/24 07:07 Q15MIN PRN BG <50 OR BG <70 & pt unresponsive Enoxaparin Sodium 40 mg 04/30/24 09:00 04/30/24 08:13 Enoxaparin Sod Inj 40 Mg/0.4 Ml Syringe SC 05/14/24 08:59 40 mg QDAY PROSPER Administration Glucagon 1 mg 04/30/24 07:08 Glucagon Inj 1 Mg Vial IM Q15MIN PRN BG <70, and no IV access Insulin Glargine 15 unit 04/30/24 21:00 Insulin Glargine (Lantus) 5 Unit/0.05 Ml (Per 5 Units) SC 05/30/24 20:59 HS [facility] Insulin Human Lispro 0 unit 04/30/24 11:30 Insulin Lispro (Admelog) 1 Unit/0.01 Ml Unit SC 05/30/24 11:29 AC [facility] Protocol Ondansetron HCl 4 mg 04/30/24 06:05 04/30/24 08:39 Ondansetron Inj 2 Mg/Ml Inj 2 Ml IV 05/30/24 06:04 4 mg Q6H PRN Administration NAUSEA OR VOMITING Protocol Pantoprazole Sodium 40 mg 04/30/24 09:00 04/30/24 08:12 Pantoprazole Inj 40 Mg Vial IVP 05/30/24 08:59 40 mg QDAY PROSPER Administration Plan Brandy Whitt is a 26-year-old female with past medical history of T1DM (on CGM and basal/bolus insulin) who presented to the ED with abdominal pain, nausea, and vomiting. States that she has not been able to use her CGM due to technical difficulties for the last few days and missed her evening dose of basal insulin. Approximately 3 hours prior to presentation she presented with symptoms as noted above and was brought to the ED by her father. #Diabetic ketoacidosis #Type 1 diabetes mellitus #Anion gap metabolic acidosis secondary to DKA and lactic acidosis #Abdominal pain Initially presented with blood glucose 303, beta hydroxybutyrate 1.3, AG 18, pH 7.5, pCO2 19 and all improved after IV insulin boluses, not requiring insulin drip. Received total of 17 units insulin and 7 L IVF. ? Glargine 15 units at bedtime ? 5 units IV regular insulin x 1 with 500 cc IVF bolus improved AG and blood glucose of 156 ? Follow-up evening renal panel, and if AG and glucose increase, will administer additional IVF and insulin ? SSI with hypoglycemic protocol in place ? Blood glucose checks every 4 hours ? Zofran for nausea ? [place] for pain ? Carb consistent low diet ? Follow-up liver ultrasound #Hypokalemia, resolved #Hypophosphatemia, resolved #Hypomagnesemia #Hypocalcemia Repleted with 4 g IV magnesium and started calcium carbonate for hypocalcemia. ? Calcium carbonate 600 mg twice daily ? Follow-up a.m. labs and replete as needed #Lactic acidosis, improving Received 7 L IVF in ED. Hospital management: Disposition: admitted and currently being managed for DKA Fluids: 500 cc IVF bolus Diet: carb consistent low Lines: PIV DVT prophylaxis: enoxaparin 40 mg SC daily GI prophylaxis: pantoprazole 40 mg IV daily CODE STATUS: full code ----- Plan discussed with attending physician Dr. Duke Alvarez MD PGY-1 Internal Medicine Attending Provider Attestation/Addendum I have discussed and was present for the essential components of the history, physical examination, diagnosis, and treatment plan with the resident. I agree with the patient's care as documented by the resident and amended herein by me. Raymond Wall DO. Although this document has been carefully reviewed, there may still be some phonetic and other typographical errors. These errors are purely grammatical due to imperfections in the software program and should not be construed in any way to compromise the substance of the patient's medical care during this visit.
--- NOTE | 2024-04-30 12:58 | XR_ITS ---
Examination: Abdomen sonogram, Limited Date and time of exam: April 30, 2024 1327 hrs. Indications: Onset right upper abdominal pain beginning 2 days ago Technique: Real-time noguera scale transabdominal sonographic images of the upper abdomen obtained. Findings: Absent gallbladder Normal common bile duct Pancreatic head 3.2 cm Liver 18.8 cm fatty infiltration no focal liver lesions Normal hepatopedal portal venous flow Patent IVC Impression: Normal common bile duct Hepatomegaly with fatty liver
[2024-04-30] MEDS: RINGERS LACTATED 500 ML 500 ML 999 ML IV (13:34)
[2024-04-30] MEDS: MG HYD/AL HYD/SIME (Maalox Reg) SUSP 30 ML UDC PO (14:09)
[2024-04-30] MEDS: POT PHOS 15 mMol in NS 250 ML 15 MMOL/250 ML BAG 62.5 MMOL IV (14:56)
[2024-04-30 14:57] LABS: Albumin, Serum 4.4 gm/dL (3.5-5.0); Anion Gap 12 (7-16); BUN/Creatinine Ratio 10 Ratio (12-20); Blood Urea Nitrogen 7 mg/dL (9-23); Calcium 7.4 mg/dL (8.3-10.6); Calcium (Corrected) 7.4 mg/dL (8.5-10.1); Carbon Dioxide 19.5 mMol/L (20.0-31.0); Chloride 107 mMol/L (98-107); Creatinine (Component) 0.7 mg/dL (0.6-1.3); Estimated Creatinine Clearance 134.7 mL/min (>60); Glucose 156 mg/dL (74-106); Osmolality,Calculated 276 (275-295); Phosphorous 2.8 mg/dL (2.4-5.1); Potassium 3.6 mMol/L (3.4-5.1); Sodium 138 mMol/L (136-145); eGFR > 60 See Note
--- NOTE | 2024-04-30 15:12 | PRELIM_ITS ---
Right upper quadrant abdominal ultrasound. April 30, 2024 at 1327 hours Clinical history: Assess abdominal pain Technique: Grayscale and color flow images of the right upper quadrant are provided. Hepatic and portal veins were also imaged with color flow images. Comparison: None. Findings: The liver is enlarged, heterogeneous and mildly hyperechoic. No intrahepatic biliary ductal dilatation. The gallbladder is surgically absent. The common bile duct is normal in caliber at 5 mm. The head of pancreas is mildly prominent measuring 3.2 cm. The remainder of the pancreas is obscured by bowel gas. Impression: Fatty hepatomegaly. Other findings as described above. Report Electronically Signed By: Aaron Nava 04/30/2024 3:12:20 PM [EST]
[2024-04-30 18:35] LABS: Albumin, Serum 4.2 gm/dL (3.5-5.0); Anion Gap 10 (7-16); BUN/Creatinine Ratio 9 Ratio (12-20); Blood Urea Nitrogen 7 mg/dL (9-23); Calcium 7.5 mg/dL (8.3-10.6); Calcium (Corrected) 7.5 mg/dL (8.5-10.1); Carbon Dioxide 19.7 mMol/L (20.0-31.0); Chloride 110 mMol/L (98-107); Creatinine (Component) 0.8 mg/dL (0.6-1.3); Estimated Creatinine Clearance 117.8 mL/min (>60); Glucose 170 mg/dL (74-106); Osmolality,Calculated 281 (275-295); Phosphorous 3.3 mg/dL (2.4-5.1); Potassium 4.3 mMol/L (3.4-5.1); Sodium 140 mMol/L (136-145); eGFR > 60 See Note
--- NOTE | 2024-04-30 21:38 | PC.NURSE ---
Report given to URSULA Higgins
[2024-04-30] MEDS: CALCIUM CARBONATE 600 MG TABLET PO (22:04)
[2024-04-30] MEDS: INSULIN GLARGINE (Lantus) 5 UNIT/0.05 ML (PER 5 UNITS) 15 UNIT SC (22:05)
[2024-05-01] VITALS: BP 109/72; PULSE 108; RESP 16; TEMP 36.6; O2SAT 97
[2024-05-01 03:31] VITALS: PULSE 88
[2024-05-01 04:00] VITALS: BP 110/80; PULSE 102; RESP 16; TEMP 36.4; O2SAT 98
[2024-05-01 06:17] LABS: Basophils % (Auto) 0 % (0-2.5); Eosinophils # (Auto) 0.1 Thou/mm3 (0.0-0.5); Eosinophils % (Auto) 1 % (0-10); Hematocrit 30.9 % (36.0-46.0); Hemoglobin 10.3 g/dL (12.0-16.0); Immature Granulocytes % (Auto) 1 % (0-0); Immature Granulocytes Auto 0.05 Thou/mm3 (0.00-0.00); Lymphocytes # (Auto) 3.2 Thou/mm3 (1.0-4.8); Lymphocytes % (Auto) 30 % (10-50); Mean Corpuscular HGB Conc 33.3 g/dl (31.0-37.0); Mean Corpuscular Hemoglobin 27.6 pg (25.0-35.0); Mean Corpuscular Volume 83 fL (80-100); Monocytes # (Auto) 0.9 Thou/mm3 (0.0-0.8); Monocytes % (Auto) 8 % (0-12); Neutrophils # (Auto) 6.6 Thou/mm3 (1.8-7.7); Neutrophils % (Auto) 61 % (37-80); Nucleated Red Blood Cell % 0 /100 WBC (0); Platelet Count 233 Thou/mm3 (140-440); RDW Standard Deviation 44.7 fL (36.4-46.3); Red Blood Count 3.73 Miln/mm3 (4.00-5.20); White Blood Count 10.8 Thou/mm3 (3.6-11.0)
[2024-05-01 06:41] LABS: Albumin, Serum 3.9 gm/dL (3.5-5.0); Anion Gap 9 (7-16); BUN/Creatinine Ratio 9 Ratio (12-20); Blood Urea Nitrogen 7 mg/dL (9-23); Calcium 7.6 mg/dL (8.3-10.6); Calcium (Corrected) 7.7 mg/dL (8.5-10.1); Carbon Dioxide 22.9 mMol/L (20.0-31.0); Cardiac Risk Estimate 4.6 RATIO (3.7-5.6); Chloride 108 mMol/L (98-107); Cholesterol 132 mg/dL (132-200); Creatinine (Component) 0.8 mg/dL (0.6-1.3); Estimated Creatinine Clearance 117.7 mL/min (>60); Glucose 173 mg/dL (74-106); HDL Cholesterol 29 mg/dL (40-60); LDL Cholesterol,Calculated 66 mg/dL (0-130); Magnesium 2.5 mg/dL (1.6-2.6); Osmolality,Calculated 281 (275-295); Phosphorous 1.5 mg/dL (2.4-5.1); Potassium 3.5 mMol/L (3.4-5.1); Sodium 140 mMol/L (136-145); Thyroid Stimulating Hormone 0.27 uIU/mL (0.55-4.78); Triglycerides 184 mg/dL (30-150); eGFR > 60 See Note
[2024-05-01 08:00] VITALS: BP 124/85; PULSE 105; PULSE 108; RESP 27; TEMP 36.8; O2SAT 99
[2024-05-01 08:40] LABS: Free T4 (Free Thyroxine) 1.17 ng/dL (0.89-1.76)
[2024-05-01] MEDS: CALCIUM CARBONATE 600 MG TABLET PO (09:17)
[2024-05-01] MEDS: PANTOPRAZOLE INJ 40 MG VIAL IVP (09:17)
[2024-05-01] MEDS: POT PHOS 15 mMol in NS 250 ML 15 MMOL/250 ML BAG 62.5 MMOL IV (09:17)
[2024-05-01] MEDS: ENOXAPARIN SOD INJ 40 MG/0.4 ML SYRINGE SC (10:00)
[2024-05-01] MEDS: INSULIN LISPRO (AdmeLOG) 1 UNIT/0.01 ML UNIT SC (11:56)
[2024-05-01] MEDS: NAPH,KPH MBDB 1 PACKET (1.5 GM) 2 PACKET PO (11:57)
[2024-05-01 12:00] VITALS: BP 102/80; PULSE 104; PULSE 116; RESP 14; TEMP 37.1; O2SAT 99
--- NOTE | 2024-05-01 13:03 | ESDS_ITS ---
<Statement entered by Francesco Esquivel MD - 05/01/24 15:39> I saw and examined the patient, and I agree with current management stated by Dr Kim MD,PGY1. Plan of care was discussed with the attending physician and resident physician. Disclaimer: Despite multiple revisions, due to the dictation software being used, the document bellow may not be free of grammatical errors including phonetic/typographic errors. However, this does not deter from our commitment to providing health care in the patient's best interest in mind. Dr. Alvin MD, PGY 2 Planned Discharge Date 05/01/24 DS: Providers Provider Date of admission: 04/30/24 06:03 Primary care physician: Physician No Primary/Family Admitting Provider: Alessio Lee MD Attending Provider on Admission: Alessio Lee MD Attending Provider on DC: Jerry Alvarez MD Discharging Provider: Jerry Alvarez MD DS: Diagnosis Problem List Completed Was Problem List Reviewed/Reconciled?: Yes Hospital Course Hospital Course Hospital course: Brandy Whitt is a 26-year-old female with past medical history of T1DM (on CGM and basal/bolus insulin) who presented to the ED with abdominal pain, nausea, and vomiting. States that she has not been able to use her CGM due to technical difficulties for the last few days and missed her evening dose of basal insulin. Approximately 3 hours prior to presentation she presented with symptoms as noted above and was brought to the ED by her father. In the ED, labs showed glucose 303, K 3.3, HCO3 16, AG 18, lactate 5.1, beta hydroxybutyrate 1.3, ABG showed pH 7.5, pCO2 19, pO2 123. She was given regular insulin 5 units IV x 2 and repeat labs showed glucose 145, AG of 12, HCO3 18. Given that gap had closed with IV insulin, decision was made to not start insulin drip. In ED also given total of 7 L IVF, 4 mg morphine, and Zofran. Repeat renal panel later in early afternoon showed glucose back in 200s and AG increased to 13 and was given an additional 5 units of IV regular insulin. Renal panel later on showed improvement of AG to 12 and repeat glucose back in 150s. Thus, decision made to continue to monitor patient off of insulin drip and continue with IV or SC insulin as needed with q4hr insulin checks with SSI. Following morning, patient appeared to be much more comfortable and was no longer in distress from abdominal pain. She was also tolerating PO diet and labs in AM showed AG of 9 and fasting glucose of 173. Given that VSS stable, labs showed closed gap, and patient was tolerating PO diet then patient was stable for discharge. Electrolytes were repleted and she was recommended to follow-up with her PCP within one week and discuss possible beta sameer given that HR remained in low 100s and states that is her baseline. Diagnoses during admission: #Diabetic ketoacidosis #Type 1 diabetes mellitus #Anion gap metabolic acidosis secondary to DKA and lactic acidosis #Abdominal pain #Hypokalemia, resolved #Hypophosphatemia, resolved #Hypomagnesemia #Hypocalcemia #Lactic acidosis, improving Discharge instructions: - Continue home regimen of insulin glargine 16 units per day and 12 units lispro three times daily with meals - Will discharge with glucometer until you can follow-up with your PCP - Follow-up with your PCP within 1 week of discharge and recommend discussing starting beta-sameer for elevated heart rate - Continue all other home medications as prescribed - Return to the ED if symptoms worsen or recur ----- Plan discussed with attending physician Dr. Wall and senior resident physician Dr. Alvin Alvarez MD PGY-1 Internal Medicine Time Spent with Patient Time attestation: Total time spent providing and/or coordinating discharge services: Exam Vital Signs Temp Pulse Resp BP Pulse Ox O2 Del Method 98.8 F 104 H 14 102/80 99 Room Air 05/01/24 12:00 05/01/24 12:05/01/24 12:05/01/24 12:05/01/24 12:05/01/24 12:00 Narrative Exam General: AOx3, pleasant, laying comfortably in bed, able to speak full sentences HEENT: NC/AT, mucous membranes moist, bilateral sclera anicteric Cardiovascular: regular rhythm, tachycardic, S1/S2 present, no murmurs appreciated Pulmonary: clear to auscultation bilaterally, no rales/rhonchi/wheezes Abdominal: mild diffuse tenderness, soft, non-distended, no rebound/guarding, normal bowel sounds present Musculoskeletal: normal ROM, no peripheral edema Skin: warm and dry, intact, no rashes Neuro: CN II-XII intact, no focal deficits Discharge Plan Plan Patient Disposition: HOME (Self Care) Care Plan Goals: - Continue home regimen of insulin glargine 16 units per day and 12 units lispro three times daily with meals - Will discharge with glucometer until you can follow-up with your PCP - Follow-up with your PCP within 1 week of discharge and recommend discussing starting beta-sameer for elevated heart rate - Continue all other home medications as prescribed - Return to the ED if symptoms worsen or recur Prescriptions/Referrals Prescriptions/Med Rec: New (DME) blood-glucose meter [Blood Glucose Monitoring] Kit See Rx Instructions .Route Qty: 1 0RF Rx Instructions: As directed (DME) lancets [Ultra Thin Lancets] 30 gauge misc See Rx Instructions .Route Qty: 100 0RF Rx Instructions: As directed (DME) pen needle, diabetic [Ultra-Thin II Ins Pen [place]] 29 gauge x 1/2 needle See Rx Instructions .Route Qty: 100 0RF Rx Instructions: As directed (DME) Blood Glucose Test Strip See Rx Instructions .Route Qty: 25 0RF Rx Instructions: As directed Baqsimi 3 mg/actuation spray,non-aerosol 3 mg intranasal QDAY PRN (Reason: hypoglycemia) Qty: 1 0RF Continued metoclopramide HCl 10 mg tablet 10 mg PO Q6H PRN (Reason: nausea and vomiting) Qty: 20 0RF hydroxyzine HCl 50 mg tablet 50 mg PO TID Patient Comments: take 1 tablet by mouth three times a day sertraline 100 mg tablet 100 mg PO QDAY Patient Comments: take 1 tablet by mouth once daily insulin lispro [Humalog KwikPen Insulin] 100 unit/mL insulin pen 16 unit SUBCUT AC Patient Comments: inject 12 units subcutaneously three times a day before meals insulin glargine-yfgn 100 unit/mL (3 mL) insulin pen 16 unit SUBCUT QDAY Patient Comments: inject 16 units subcutaneously once daily Discontinued diphenhydramine HCl [Benadryl] 25 mg capsule 25 mg PO Q8H PRN (Reason: allergic symptoms) Qty: 30 0RF insulin glargine [Lantus Solostar U-100 Insulin] 100 unit/mL (3 mL) insulin pen 15 unit subcut QPM 30 Days Qty: 4.5 1RF Referrals: No Primary/Family,Physician [Primary Care Provider] - Patient/Caregiver Discharge Instructions Education Materials: Diabetes and Drinking Alcohol, How to Check Your Blood Sugar, Insulin How to Use and Where to Inject, Healthy Meals for Diabetes, Diabetes Exercise Plan, Diabetes Tracking Your Fitness ..., Diabetic Ketoacidosis Print Language: Angolan Stand Alone Forms: [employer] Info., Patient Portal Info Letter Discharge Order Discharge Orders: Discharge (Routine); Ordered 05/01/24 Ordered By: Jerry Alvarez Quality Discharge Quality Measures VTE prophylaxis MD Attestestation MD Attestation I have discussed and was present for the essential components of the discharge history, physical examination, diagnosis, and discharge treatment plan with the resident. I agree with the patient's discharge care as documented by the resident and amended herein by me. Raymond Wall DO. The patient understood all discharge instructions, all questions were answered satisfactorily. The patient was instructed to return to the Emergency Department is symptoms worsened or persisted. Patient significantly improved since previous days, blood sugar has been in the normal range on her home dose insulin. Anion gap closed, bicarb within normal range. The patient feels significantly improved. Patient was stable, afebrile, ambulatory and tolerating p.o. intake at time of discharge home. All questions were answered satisfactorily. Although this document has been carefully reviewed, there may still be some phonetic and other typographical errors. These errors are purely grammatical due to imperfections in the software program and should not be construed in any way to compromise the substance of the patient's medical care during this visit.
[2024-05-01 13:55] VITALS: BP 132/91; PULSE 100; RESP 16; TEMP 36.9; O2SAT 99
== END 2024-05-01 13:58 | disposition home or self-care (01) | DRG 639 ==
LOC: SERX 04:35 → SERHOLD 06:19 → S3SX 21:47
PROVIDERS: Student in an Organized Health Care Education/Training Program; Admitting Provider Internal Medicine; Emergency Provider Emergency Medicine; Visit Provider Internal Medicine
DX: E10.10 Type 1 diabetes mellitus with ketoacidosis without coma (principal); E83.39 Other disorders of phosphorus metabolism; E83.42 Hypomagnesemia; E83.51 Hypocalcemia; R74.01 Elevation of levels of liver transaminase levels; F17.200 Nicotine dependence, unspecified, uncomplicated; R03.0 Elevated blood-pressure reading, without diagnosis of hypertension; R00.0 Tachycardia, unspecified; E87.6 Hypokalemia; Z79.4 Long term (current) use of insulin
CPT/HCPCS: 36415; 36600; 76705; 80053; 80061; 80069; 80307; 80320; 80329; 81001; 81025; 82010; 82140; 82150; 82803; 83036; 83605; 83690; 83735; 83880; 84100; 84145; 84439; 84443; 84484; 84703; 85025; 85652; 86140; 87040; 87086; 87400; 87811; 93005; 93225; 96360; 96361; 96365; 96366; 96372; 96374; 96375; 99285; J1650; J1815; J1885; J2060; J2270; J2405; J2470; J3475; J7030; J7040; J7120; J7999; A9270; G0480